=== PATIENT | female | born 1950 | race Caucasian/White ===

== ENCOUNTER 2017-05-11 03:27 | Outpatient (CLI) | payer BC | END 2017-05-11 03:28 | disposition home or self-care (01) | LOC: BICMRI 03:27 | PROVIDERS: ATTEND Anesthesiology Pain Medicine | DX: M51.16 Intervertebral disc disorders with radiculopathy, lumbar region (principal); M48.061 Spinal stenosis, lumbar region without neurogenic claudication | CPT/HCPCS: 72148 ==

== ENCOUNTER 2019-03-21 07:32 | Outpatient (CLI) | payer BC, MEDICARE ==
--- NOTE | 2019-03-21 11:24 | MRI ---
RIGHT KNEE MRI WITHOUT IV CONTRAST: Date: 03/21/19 HISTORY: Tear medial meniscus, right knee pain. TECHNIQUE: Multiplanar, multisequence MRI examination of the right knee is performed. FINDINGS: No abnormal joint effusion. There is physiologic joint fluid. Popliteal fossa cyst is noted. Possible small semimembranosus bursal fluid collection. Somewhat complex tear of the lateral meniscus includi ng horizontal tear of the anterior body/anterior horn with intrameniscal and parameniscal cystic austin ges, as well as an undersurface and probable small flap tear at the posterior horn/posterior root gerson ction. The medial meniscus demonstrates an irregular posterior root tear. Anterior and posterior cruc iate ligaments, collateral ligament complexes, and quadriceps and patellar tendons appear intact. The re is some fluid within a minimally dilated popliteal hiatus with a small 0.4 cm body. Small focus of marrow edema with a subchondral cyst involving the medial intercondylar eminence region. IMPRESSION: 1. Bilateral meniscal tears. 2. Small intra articular body within a dilated popliteal hiatus. 3. Small popliteal fossa cyst. 4. Small tibial interosseous cyst with minimal adjacent marrow edema. 5. Other findings as above. POS: TPC
== END 2019-03-21 07:33 | disposition home or self-care (01) ==
LOC: BICMRI 07:32
PROVIDERS: ATTEND Orthopaedic Surgery
DX: S83.241A Other tear of medial meniscus, current injury, right knee, initial encounter (principal); S83.281A Other tear of lateral meniscus, current injury, right knee, initial encounter; M71.20 Synovial cyst of popliteal space [Baker], unspecified knee; M85.6 Other cyst of bone; R60.0 Localized edema; M25.869 Other specified joint disorders, unspecified knee

== ENCOUNTER 2020-04-11 09:30 | Inpatient (IN) | payer BC, MEDICARE ==
[2020-04-15 14:14] VITALS: BMI 32.1
[2020-04-16] MEDS ORDERED: Fentanyl 100 MCG/2 ML VIAL ONE ×3 (07:34→10:17)
[2020-04-16] MEDS ORDERED: Midazolam HCl 2 mg/2 ml Vial ONE (07:34)
[2020-04-16] MEDS ORDERED: Tranexamic Acid 1,000 MG/10 ML VIAL ONE (07:44)
[2020-04-16] MEDS ORDERED: Sodium Chloride 0.9% 100 ML ONE (07:44)
[2020-04-16] MEDS ORDERED: Vancomycin 1.5 GRAM/300 ML BAG ONE (07:45)
[2020-04-16] MEDS ORDERED: Fentanyl 100 MCG/2 ML VIAL SLOW IVP PRN (08:27)
[2020-04-16] MEDS ORDERED: Promethazine HCl 25 MG/ML VIAL IM PRN ×3 (08:30→10:10)
[2020-04-16] MEDS ORDERED: Zolpidem Tartrate 5 MG TAB PO PRN ×2 (08:30→08:47)
[2020-04-16] MEDS ORDERED: Ropivacaine HCl/PF 250 ML in Premix Bag 1 BAG NERVE BLCK SCH (08:30)
[2020-04-16] MEDS ORDERED: HYDROcodone/Acetaminophen 10/325 mg Tablet PO PRN (08:30)
[2020-04-16] MEDS ORDERED: Ondansetron PF 4 MG/2 ML Vial IVP PRN (08:30)
[2020-04-16] MEDS ORDERED: traMADol HCl 50 MG TAB PO PRN (08:30)
[2020-04-16] MEDS ORDERED: ePHEDrine 50 MG/ML VIAL ONE (08:34)
[2020-04-16] MEDS ORDERED: Acetaminophen 325 MG TAB PO PRN (08:47)
[2020-04-16] MEDS ORDERED: diphenhydrAMINE 25 MG CAP PO PRN (08:47)
[2020-04-16] MEDS ORDERED: Promethazine HCl 25 MG/ML VIAL SLOW IVP PRN (10:10)
[2020-04-16] MEDS ORDERED: PACU-Morphine 4MG/ML VIAL SLOW IVP PRN (10:10)
[2020-04-16] MEDS ORDERED: HYDROmorphone 2 MG/ML VIAL SLOW IVP PRN (10:10)
[2020-04-16] MEDS ORDERED: Ondansetron HCl/PF 4 MG/2 ML Vial IVP PRN (10:10)
[2020-04-16] MEDS ORDERED: Ketorolac Tromethamine 30 MG/ML VIAL ONE (11:12)
[2020-04-16] MEDS ORDERED: Ropivacaine 0.2% HCl/PF (40 MG/20 ML VIAL) ONE (11:12)
[2020-04-16] MEDS ORDERED: Lidocaine 1% PF 5 ML VIAL ONE (11:12)
[2020-04-16] MEDS ORDERED: PROPOFOL 200 MG/20 ML VIAL ONE (11:12)
[2020-04-16] MEDS ORDERED: Dexamethasone 20 MG/5 ML VIAL ONE (11:12)
[2020-04-16] MEDS ORDERED: Ondansetron PF 4 MG/2 ML Vial ONE (11:12)
[2020-04-16] MEDS ORDERED: Bupivacaine HCl 0.5%/Epinephrine 1:200,000/PF 30 ml Vial ONE (11:12)
--- NOTE | 2020-04-16 11:36 | RAD ---
LEFT KNEE 2 VIEWS: Date: 04/16/2020 HISTORY: Total knee replacement postop. FINDINGS/IMPRESSION: There are recent postop changes of total knee arthroplasty in good position and alignment. Soft tissu e air is present. POS: AH
[2020-04-16] MEDS: Multivitamin W/ Minerals 1 TAB PO SCH (11:43)
[2020-04-16] MEDS: Aspirin 81 mg Enteric Coated Tablet PO SCH ×2 (11:43→19:57)
[2020-04-16] MEDS: Ferrous Gluconate 324 MG TAB PO SCH ×2 (11:43→19:57)
[2020-04-16] MEDS: Senokot S 8.6-50 MG TAB PO SCH ×2 (11:43→19:58)
[2020-04-16] MEDS: Sodium Chloride 0.9% 1,000 ML IV SCH ×2 (11:48→18:53)
[2020-04-16] MEDS: Ketorolac Tromethamine 30 MG/ML VIAL IVP SCH ×3 (11:48→23:09)
[2020-04-16] MEDS: HYDROcodone/Acetaminophen 10/325 mg Tablet PO PRN ×2 (13:10→22:40)
[2020-04-16] MEDS: CEFAZOLIN 2 GM in Premix Bag 1 BAG IVPB SCH ×2 (15:26→23:09)
[2020-04-16] MEDS: Ondansetron PF 4 MG/2 ML Vial IVP PRN (15:48)
[2020-04-16] MEDS: traMADol HCl 50 MG TAB PO PRN (19:57)
[2020-04-16] MEDS: Calcium Carbonate 500 MG ChewTAB PO PRN (21:07)
[2020-04-17] MEDS: Sodium Chloride 0.9% 1,000 ML IV SCH (04:42)
--- NOTE | 2020-04-17 05:39 | OP ---
DATE OF PROCEDURE: 04/16/2020 PROCEDURE PERFORMED: Left total knee arthroplasty using Jose Carlos Triathlon 4 femur 4 tibia, 9-mm CS X3 polyethylene and A29 patella. SPRAY GUN STRIPER: Rob Sierra MD BLOOD LOSS: Minimal. SPECIMEN: None. DRAINS: None. COMPLICATIONS: None. TOURNIQUET TIME: 46 minutes. The co-surgeon was present through the entire procedure and was responsible for providing exposure, tissue retraction and any necessary limb or tissue manipulation required to obtain necessary reduction or hardware placement. The co-surgeon also provided bleeding control, tissue closure, and suturing in conjunction with the primary surgeon. PROCEDURE IN DETAIL: After informed consent was obtained in the preoperative holding area, the patient was taken to the operative suite where general anesthesia was induced. Once adequate level of general anesthesia was obtained, the patient was positioned and a well-padded tourniquet was placed around the left proximal thigh. The left lower extremity was then prepped and draped in the usual sterile fashion. Prior to exsanguination, a time-out was called and all members of the surgical team agreed upon site, surgeon, and patient. The extremity was then exsanguinated and the tourniquet was raised. A midline longitudinal incision was then made directly over the patella extending 2 fingerbreadths above the superior pole of the patella and 2 fingerbreadths inferior to the inferior patellar pole of the patella. Deeper subcutaneous layers were dissected sharply and local bleeding was controlled with Bovie electrocautery. A quad tendon longitudinal split was then made sharply and a median parapatellar arthrotomy was carried out both sharp and with Bovie electrocautery, carried down to 1 fingerbreadth medial to the tibial tubercle. The knee was then placed into flexion and the patella was everted nicely, and a copious fat pad ectomy was performed allowing for greater exposure of the tibia. The computer-assisted distal femoral fiducial was then placed and pinned firmly, and the distal femoral cutting guide was pinned firmly into place. The oscillating saw was then used to remove the appropriate amount of bone. The 4-in-1 cutting block was then placed on the distal femur and the oscillating saw was used to remove the appropriate amount of bone off the anterior, posterior, and chamfer cuts. After completion of bone cuts, the anterior cruciate ligament was resected sharply and the posterior cruciate ligament retractor was placed and the tibia was subluxed for better exposure. Partial meniscectomies were carried out, and the tibial computer-assisted fiducial was pinned, and the cutting guide was placed. Oscillating saw was then used to remove the bone, with Hohmann retractors used to take care and protect the collateral ligaments. After the tibial resection was performed, a laminar cashier gambling was placed in between the freshened bone cuts. The knee placed at 90 degrees and further bilateral meniscectomies were carried out, and the curved osteotome and curettage were used to remove any excess bone spurs in the posterior compartment. The trial femoral component, tibial baseplate were placed with the appropriate polyethylene trial insert with an appropriate polyethylene spacer and patellar button. The knee was taken through full range of motion with flexion and extension from 0 to 90 degrees and patellar broach squarely in the trochlea without any squinting or subluxation noted. The knee was also stable to varus and valgus stressing at 0, 15, 45, and 90 degrees of flexion. The drawer was negative. All trial components were then removed and the keel punch was used to provide the appropriate defect in the tibia with a mallet. The freshened bone cuts were copiously irrigated with pulsatile lavage of about 1.5 L to remove all excess debris. The freshened bone cuts were then dried with suction and lap sponge. The knee was placed in flexion and retractors were placed to provide access to all bone cuts. Tobramycin-impregnated methyl methacrylate cement was then placed on the freshened bone cuts and implants which were malleted firmly into place. Curettage and Meyers Chuck elevators were used to remove any excess bone cement. The knee was placed into full extension and the patellar button was placed under compression, and the cement was allowed to cure. Once completed, the components were again taken through full range of motion and copious irrigation of the knee was carried out with another liter of normal saline. All components were inspected fully with full range of motion and varus and valgus stressing. There was no laxity noted and full extension was observed clinically. Primary closure was accomplished with #2 interrupted Vicryl stitch of the arthrotomy defect. This was oversewn with a #2 running Quill barbed stitch. The gravitational platelet system was then injected into the arthrotomy prior to closure. The subcutaneous layer was then closed with a running 0 barbed Monocryl stitch and skin closure accomplished with a running subcuticular 3-0 Monocryl barbed Quill stitch and augmented with cement on the skin. Tourniquet was lowered. Good spontaneous return of distal pulses was noted clinically and a sterile dressing was applied to the incision. The procedure was terminated without any complications. The patient was awakened in the operative suite and the patient was taken to the recovery room in stable condition. Job ID: [id number]
[2020-04-17] MEDS: Ketorolac Tromethamine 30 MG/ML VIAL IVP SCH ×4 (06:13→23:03)
[2020-04-17 07:04] LABS: Hemoglobin 11.7 g/dL (12.0-16.0); Mean Corpuscular HGB CONC 32.7 g/dL (32.0-36.0); Mean Corpuscular Hemoglobin 29.7 pg (27.0-31.0); Mean Corpuscular Volume 90.7 fL (78.0-98.0); Mean Platelet Volume 7.9 fL (7.4-10.4); Platelet Count 240 thou/uL (130-400); RBC Distribution Width 11.8 % (11.5-14.5); Red Blood Cell (RBC) Count 3.95 mill/uL (4.20-5.40)
[2020-04-17] MEDS: Multivitamin W/ Minerals 1 TAB PO SCH (08:30)
[2020-04-17] MEDS: Senokot S 8.6-50 MG TAB PO SCH ×2 (08:30→20:01)
[2020-04-17] MEDS: Ferrous Gluconate 324 MG TAB PO SCH ×2 (08:31→20:01)
[2020-04-17] MEDS: Aspirin 81 mg Enteric Coated Tablet PO SCH ×2 (08:31→20:01)
--- NOTE | 2020-04-17 09:58 | PRG ---
DATE OF SERVICE: 04/17/2020 SUBJECTIVE: Alma is a 69-year-old female, postop day 1 from a left total knee arthroplasty. Her pain is well controlled with the indwelling block. She is taking no medications this morning and she ambulated 30-feet yesterday evening. OBJECTIVE: Temperature 98.4, pulse 75, respiratory rate 18 and nonlabored, blood pressure is 104/62. She is alert and oriented to person, place, time, and situation. Responsive and appropriate with examiner. Incision is clean. No strikethrough. No erythema. LABORATORY DATA: Hemoglobin and hematocrit 11.7 and 35.8. IMPRESSION: A 69-year-old female, postop day 1, left total knee arthroplasty, doing well. PLAN: Continue to observe pain control. Continue to observe for hemorrhage. Expected date of discharge tomorrow morning to home. Job ID: [id number]
[2020-04-17] MEDS: traMADol HCl 50 MG TAB PO PRN (10:44)
[2020-04-17] MEDS ORDERED: FLU VACC QS2020-21(65YR UP)/PF 240 MCG/0.7 ML SYRINGE IM ONE (12:00)
[2020-04-17] MEDS: HYDROcodone/Acetaminophen 10/325 mg Tablet PO PRN (17:27)
[2020-04-17] MEDS: Calcium Carbonate 500 MG ChewTAB PO PRN (20:01)
[2020-04-18] MEDS: HYDROcodone/Acetaminophen 10/325 mg Tablet PO PRN ×2 (05:14→10:19)
[2020-04-18] MEDS: Ketorolac Tromethamine 30 MG/ML VIAL IVP SCH (05:15)
[2020-04-18] MEDS: Aspirin 81 mg Enteric Coated Tablet PO SCH (09:01)
[2020-04-18] MEDS: Senokot S 8.6-50 MG TAB PO SCH (09:02)
[2020-04-18] MEDS: Multivitamin W/ Minerals 1 TAB PO SCH (09:02)
[2020-04-18] MEDS: Ferrous Gluconate 324 MG TAB PO SCH (09:02)
[2020-04-18] MEDS: Ondansetron PF 4 MG/2 ML Vial IVP PRN (12:31)
[2020-04-18 12:40] VITALS: BP 116/85; TEMP 98.7
== END 2020-04-18 13:40 | disposition home or self-care (01) | DRG 470 ==
LOC: SURG A 04-16 06:19
PROVIDERS: ADMIT Orthopaedic Surgery; ATTEND Orthopaedic Surgery
PROC: 0SRD0J9 Replacement of Left Knee Joint with Synthetic Substitute, Cemented, Open Approach (ICD-10-PCS; principal; 2020-04-16)
DX: M17.32 Unilateral post-traumatic osteoarthritis, left knee (principal); Z20.828 Contact with and (suspected) exposure to other viral communicable diseases; K21.9 Gastro-esophageal reflux disease without esophagitis; Z79.899 Other long term (current) drug therapy
CPT/HCPCS: 36415; 85027; 93005; 93010; C1713; C1776; J0690; J1100; J1885; J2250; J2405; J2704; J2795; J3010; J3370; J3490; Q0163

== ENCOUNTER 2020-04-12 08:50 | Outpatient (CLI) | payer BC, OTHER ==
[2020-04-12 16:24] LABS: #Basophils 0.1 10x3/uL (0.0-0.2); #Eosinphils 0.2 10x3/uL (0.0-0.5); #Monocytes 0.5 10x3/uL (0.0-1.1); #Neutrophils 3.5 10x3/uL (1.5-8.4); %Basophils 0.7 % (0.0-2.0); %Eosinophils 2.8 % (0.0-6.0); %Monocytes 7.8 % (0.0-10.0); %Neutrophils 51.4 % (40.0-75.0); Bilirubin Neg (Negative); Blood, Urine 10 (Negative); Clarity Clear (Clear); Glucose, Urine (Dipstick) Normal (Negative); Hemoglobin 13.7 g/dL (12.0-16.0); Ketone, Urine Negative (Negative); Leukocyte 500 (Negative); Mean Corpuscular HGB CONC 32.5 G/DL (32.0-36.0); Mean Corpuscular Hemoglobin 28.7 PG (27.0-33.0); Mean Corpuscular Volume 88.3 fl (80.0-100.0); Mean Platelet Volume 9.9 fl (7.4-10.4); Nitrite Negative (Negative); Platelet Count 289 10x3/uL (130-400); Protein, Urine (Dipstick) Negative (Neg-Trace); RBC Distribution Width 13.2 % (11.5-14.5); Red Blood Cell (RBC) Count 4.77 10x6/uL (3.90-5.20); Urobilinogen Normal mg/dL (Less than 2); White Blood Cell (WBC) Count 6.8 10x3/uL (4.5-11.0)
[2020-04-12 16:36] LABS: Prothrombin Time 10.3 sec (9.5-12.1); RBC/HPF 0-3 HPF (0-3)
[2020-04-12 16:38] LABS: Bacteria/HPF Rare-Few HPF (None Seen); Mucous/LPF 1+ LPF (<2+); Yeast-Budding Rare HPF (None Seen)
[2020-04-12 16:42] LABS: Anion Gap 14 mmol/L (10-20); BUN (Urea Nitrogen) 18 mg/dL (9.8-20.1); Calc. Creatinine Clearance 0 mL/min (70-130); Calcium 9.2 mg/dL (7.8-10.44); Carbon Dioxide 28 mmol/L (23-31); Chloride 104 mmol/L (98-107); Estimated GFR-MDRD 79; Glucose 99 mg/dL (80-115); Potassium 4.2 mmol/L (3.5-5.1); Sodium 142 mmol/L (136-145)
[2020-04-14 18:13] LABS: SARS-CoV-2 MS2 Positive; SARS-CoV-2 N Gene Negative; SARS-CoV-2 S Gene Negative; SARS-CoV-2 by NAA Not Detected (NotDetected); SARS-CoV-2 orf1ab Negative
== END 2020-04-12 08:51 | disposition home or self-care (01) ==
LOC: LABBT 08:50
PROVIDERS: ATTEND Orthopaedic Surgery
DX: Z01.818 Encounter for other preprocedural examination (principal); Z20.828 Contact with and (suspected) exposure to other viral communicable diseases; M17.32 Unilateral post-traumatic osteoarthritis, left knee
CPT/HCPCS: 80048; 81001; 85025; 85610; 87081; 87635; 93005; 93010; U0003

== ENCOUNTER 2021-03-27 08:52 | Outpatient (CLI) | payer BC, MEDICARE ==
[2021-03-27 10:19] LABS: Bilirubin Neg (Negative); Blood, Urine Negative (Negative); Clarity Clear (Clear); Glucose, Urine (Dipstick) Normal (Negative); Ketone, Urine Negative (Negative); Leukocyte 25 (Negative); Nitrite Negative (Negative); Protein, Urine (Dipstick) Negative (Neg-Trace); Specific Gravity, Urine 1.005 (1.002-1.036); Urobilinogen Normal mg/dL (Less than 2); pH, Urine 6.5 (5.0-9.0)
[2021-03-27 10:36] LABS: #Eosinphils 0.2 10x3/uL (0.0-0.5); #Monocytes 0.5 10x3/uL (0.0-1.1); #Neutrophils 2.7 10x3/uL (1.5-8.4); %Basophils 0.7 % (0.0-2.0); %Eosinophils 3.1 % (0.0-6.0); %Lymphocytes 42.2 % (18.0-47.0); %Monocytes 7.8 % (0.0-10.0); %Neutrophils 45.9 % (40.0-75.0); Mean Corpuscular HGB CONC 31.6 g/dL (32.0-36.0); Mean Corpuscular Hemoglobin 28.7 pg (27.0-33.0); Mean Platelet Volume 10.3 fl (7.4-10.4); Platelet Count 292 10x3/uL (150-450); RBC Distribution Width 13.1 % (11.5-14.5); Red Blood Cell (RBC) Count 4.87 10x6/uL (3.90-5.03); White Blood Cell (WBC) Count 5.9 10x3/uL (3.5-10.5)
[2021-03-27 11:00] LABS: Bacteria/HPF 1+ HPF (None Seen); RBC/HPF 0-3 HPF (0-3)
[2021-03-27 23:10] LABS: SARS-CoV-2 PCR by NAA Not Detected (NotDetected)
== END 2021-03-27 08:53 | disposition home or self-care (01) ==
LOC: LABBT 08:52
PROVIDERS: ATTEND Orthopaedic Surgery Hand Surgery
DX: Z01.818 Encounter for other preprocedural examination (principal); G56.01 Carpal tunnel syndrome, right upper limb; M65.841 Other synovitis and tenosynovitis, right hand; Z20.822 Contact with and (suspected) exposure to COVID-19
CPT/HCPCS: 81003; 81015; 85025; 93005; 93010; U0003; U0005

== ENCOUNTER 2021-04-01 06:40 | Day surgery (SDC) | payer BC ==
[2021-03-31 10:47] VITALS: BMI 32.1
[2021-04-01] MEDS ORDERED: Fentanyl 100 MCG/2 ML VIAL ONE ×2 (08:01→09:01)
[2021-04-01] MEDS ORDERED: Midazolam HCl 2 mg/2 ml Vial ONE (08:01)
[2021-04-01] MEDS ORDERED: Lidocaine 1% PF 5 ML VIAL ONE (08:59)
[2021-04-01] MEDS ORDERED: Ondansetron PF 4 MG/2 ML Vial ONE (08:59)
[2021-04-01] MEDS ORDERED: Ketorolac Tromethamine 30 MG/ML VIAL ONE (08:59)
[2021-04-01] MEDS ORDERED: PROPOFOL 200 MG/20 ML VIAL ONE (08:59)
[2021-04-01] MEDS ORDERED: Bupivacaine HCl 0.5%/Epinephrine 1:200,000/PF 30 ml Vial ONE (08:59)
[2021-04-01] MEDS ORDERED: Bupivacaine PF 0.5% 30 ML VIAL ONE (09:07)
[2021-04-01] MEDS ORDERED: Bacitracin Zinc Ointment 30 gm TUBE ONE (09:07)
[2021-04-01] MEDS ORDERED: Betamet Acet/Betamet Na Ph 30 MG/5 ML VIAL ONE (09:07)
== END 2021-04-01 13:59 | disposition home or self-care (01) ==
LOC: SDC 06:40
PROVIDERS: ATTEND Orthopaedic Surgery Hand Surgery
PROC: 01N50ZZ Release Median Nerve, Open Approach (ICD-10-PCS; principal; 2021-04-01)
PROC: 3E0T3BZ Introduction of Anesthetic Agent into Peripheral Nerves and Plexi, Percutaneous Approach (ICD-10-PCS; principal; 2021-04-01)
PROC: 0LB50ZZ Excision of Right Lower Arm and Wrist Tendon, Open Approach (ICD-10-PCS; principal; 2021-04-01)
DX: M65.88 Other synovitis and tenosynovitis, other site (principal); M65.841 Other synovitis and tenosynovitis, right hand; G56.01 Carpal tunnel syndrome, right upper limb; M65.341 Trigger finger, right ring finger; K21.9 Gastro-esophageal reflux disease without esophagitis; G56.11 Other lesions of median nerve, right upper limb; M66.241 Spontaneous rupture of extensor tendons, right hand; M15.1 Heberden's nodes (with arthropathy); M19.041 Primary osteoarthritis, right hand; Z79.899 Other long term (current) drug therapy; Z88.6 Allergy status to analgesic agent
CPT/HCPCS: 88305; J0702; J1885; J2250; J2405; J2704; J3010; S0020

== ENCOUNTER 2022-05-06 08:39 | Outpatient (CLI) | payer BC | END 2022-05-06 08:40 | disposition home or self-care (01) | LOC: BICMAMMO 08:39 | PROVIDERS: ATTEND Family Medicine | DX: Z12.39 Encounter for other screening for malignant neoplasm of breast (principal); R92.8 Other abnormal and inconclusive findings on diagnostic imaging of breast | CPT/HCPCS: 77063; 77067 ==

== ENCOUNTER 2022-10-05 10:53 | Outpatient (CLI) | payer BC | END 2022-10-05 10:54 | disposition home or self-care (01) | LOC: BICRAD 10:53 | PROVIDERS: ATTEND Family Medicine | DX: M19.041 Primary osteoarthritis, right hand (principal) ==

== ENCOUNTER 2024-03-01 09:31 | Outpatient (CLI) | payer BC | END 2024-03-01 09:32 | disposition home or self-care (01) | LOC: BICMAMMO 09:31 | PROVIDERS: ATTEND Family Medicine | DX: Z12.31 Encounter for screening mammogram for malignant neoplasm of breast (principal) | CPT/HCPCS: 77067 ==

== ENCOUNTER 2025-03-01 08:22 | Outpatient (CLI) | payer BC | END 2025-03-01 08:23 | disposition home or self-care (01) | LOC: BICMAMMO 08:22 | PROVIDERS: ATTEND Family Medicine | DX: Z12.31 Encounter for screening mammogram for malignant neoplasm of breast (principal) | CPT/HCPCS: 77063; 77067 ==